=== PATIENT | female | born 1975 | race Caucasian/White ===

== ENCOUNTER 2021-05-06 09:04 | Outpatient (CLI) | payer OTHER | END 2021-05-06 09:09 | disposition home or self-care (01) | LOC: SONOGRAMA 09:04 | PROVIDERS: ATTEND Pathology Anatomic Pathology & Clinical Pathology | DX: E04.2 Nontoxic multinodular goiter (principal) ==

== ENCOUNTER → 2024-07-14 | Emergency (ER) | payer OTHER ==
[~2024-07-14] VITALS: Ht 160 cm; Wt 113.4 kg
[~2024-07-14] MED LIST: ACETAMINOPHEN 500 MG GEL..CAP PO ONE; AMOX1TAB5 PO; FLONASE16 GM NASAL
[2024-07-14 08:17] VITALS: BP 128/84; O2SAT 100
[2024-07-14 11:31] LABS: HEMATOCRIT 42.7 % (36.0-45.00); HEMOGLOBIN 14.4 g/dL (12.0-15.00); MEAN CELL VOLUME 86.1 fL (80.00-100.00); MEAN CORPUSCULAR HEMOGLOBIN 29.1 pg (27.00-32.0); MEAN CORPUSCULAR HGB CONC 33.7 g/dl (32.0-36.0); PLATELET COUNT 199 K/uL (150-450); RED BLOOD COUNT 4.96 M/uL (4.00-6.00)
[2024-07-14 11:54] LABS: COVID-19 AG NEGATIVE (NEGATIVE); INFLUENZA A AG NEGATIVE (NEGATIVE)
[2024-07-14 11:58] LABS: ALBUMIN 3.1 gm/dL (3.4-5.0); BILIRUBIN TOTAL 0.49 mg/dL (0.3-1.2); CALCIUM 9.4 mg/dL (8.5-10.1); CREATININE SERUM 0.78 mg/dL (0.55-1.02); GFR 78.17; GLOBULINA 4.4 G/DL (2.4-3.5); POTASSIUM 4.17 mEq/L (3.5-5.1); TOTAL PROTEIN 7.5 gm/dL (6.4-8.2)
== END | disposition home or self-care (01) ==
LOC: ER 08:14
PROVIDERS: General Practice
DX: J98.8 Other specified respiratory disorders (principal); J32.9 Chronic sinusitis, unspecified; R53.81 Other malaise; Z20.822 Contact with and (suspected) exposure to COVID-19